=== PATIENT | female | born 1960 | race Caucasian/White ===

== ENCOUNTER 2018-02-28 07:18 | Emergency (ER) | payer MEDICARE, OTHER ==
[2018-02-28 07:33] VITALS: BP 112/66
--- NOTE | 2018-02-28 08:02 | UC ---
Hip/Pelvis Pain - HPI Summary HPI Summary: 57 yo WF h/o OP p/w sudden right hip pain radiating into right buttock x1 day, first felt when grocery shopping, denies injury, fall, overuse. Denies numbness or tingling. - History Of Current Complaint Chief Complaint: UCLowerExtremity Stated Complaint: HIP PAIN Time Seen by Provider: 02/28/18 07:42 Hx Obtained From: Patient Onset/Duration: Sudden Onset, Lasting Days, Still Present Severity Initially: Moderate Severity Currently: Severe Pain Intensity: 10 Location: Discrete At: - iN right hip joint, Radiates To: - right buttock Aggravating Factor(s): Nothing Alleviating Factor(s): Nothing Associated Signs And Symptoms: Positive: Negative - Allergies/Home Medications Allergies/Adverse Reactions: Allergies Allergy/AdvReac Type Severity Reaction Status Date / Time No Known Allergies Allergy Verified 12/07/15 15:15 PMH/Surg Hx/FS Hx/Imm Hx - Additional Past Medical History Additional PMH: Osteoporosis - Surgical History Surgical History: Yes Surgery Procedure, Year, and Place: tonsillectomy 1987,lumpectomy LEFT BREAST 2009, rods and screws to back 04/2015 - Family History Known Family History: Positive: Cardiac Disease - daughter had an [place] at 22, Diabetes Family History: FHx of breast CA (sister) - Social History Alcohol Use: Rare Substance Use Type: None Substance Use Comment - Amount & Last Used: nucynta, Smoking Status (MU): Never Smoked Tobacco Review of Systems All Other Systems Reviewed And Are Negative: Yes Constitutional: Positive: Negative Skin: Positive: Negative Eyes: Positive: Negative ENT: Positive: Negative Respiratory: Positive: Negative Cardiovascular: Positive: Negative Gastrointestinal: Positive: Negative Genitourinary: Positive: Negative Motor: Positive: Negative Neurovascular: Positive: Negative Musculoskeletal: Positive: Decreased ROM - right hip Neurological: Positive: Negative Psychological: Positive: Negative Physical Exam - Summary Physical Exam Summary: Vital Signs Reviewed: Yes Skin: Positive: Warm Head/Face: Positive: Normal Head/Face Inspection Eyes: Positive: Normal ENT: Positive: Normal ENT inspection Neck: Positive: Supple Respiratory/Lung Sounds: Positive: Clear to Auscultation Cardiovascular: Positive: Normal, RRR, S1, S2 Abdomen Description: Positive: Nontender Musculoskeletal: Positive: pain elicited with right straight leg test in hip joint, not into the lower back, NEG lumbar paraspinal muscle tenderness. antalgic gait Neurological: Positive: Normal Psychiatric: Positive: Normal, Affect/Mood Appropriate Vital Signs: Initial Vital Signs Temp 36.8 C 02/28/18 07:27 Pulse 78 02/28/18 07:27 Resp 16 02/28/18 07:27 BP 112/66 02/28/18 07:27 Pulse Ox 99 02/28/18 07:27 Hip Injury Course/Dx - Course Course Of Treatment: right hip pain- XR of right hip and lumbar XR neg for acute pathology or fracture, advised pt to f/u with PCP and ortho for MRI if pain persists - Differential Dx/Diagnosis Provider Diagnosis: Acute right hip pain Discharge - Sign-Out/Discharge Documenting (check all that apply): Patient Departure All imaging exams completed and their final reports reviewed: Yes - Discharge Plan Condition: Stable Disposition: HOME Patient Education Materials: Hip Pain (ED) Referrals: Christian Cantu MD [Primary Care Provider] - Additional Instructions: PLEASE GET OSCAL 500 FROM PHARMACY AND TAKE ONE TAB TWICE PER DAY FOR CHRONIC OSTEOPENIA (LACK OF BONE MASS) - Billing Disposition and Condition Condition: STABLE Disposition: Home
== END 2018-02-28 09:34 | disposition home or self-care (01) ==
LOC: UCEAST 07:18
DX: M25.551 Pain in right hip (principal); M79.10 Myalgia, unspecified site; M81.0 Age-related osteoporosis without current pathological fracture
CPT/HCPCS: 72110; 99212; G0463

== ENCOUNTER 2019-06-11 19:38 | Emergency (ER) | payer MEDICARE, OTHER ==
--- OUTSIDE RECORDS SUMMARY | 2019-06-11 19:45 | XMS REPORT | Continuity of Care Document ---
:1960 External Reference #:[id number] Author Name Roxanne Watson Address [address] [place] [address] Care Team Providers Name Role Phone Christian Cantu MD - Family Care Team Information Rollout Manager Medicine [facility] [place] Physical Therapy - Physical Care Team Information Rollout Manager [phone] Therapy Problems Active Problems Provider Date Dysthymic disorder Dillon Arcos M.D. Onset: 02/03/2016 Candidiasis of mouth Dillon Arcos M.D. Onset: 03/24/2015 Spinal stenosis of thoracic region Dillon Arcos M.D. Onset: 03/24/2015 Cystic disease of kidney Joseluis Campoverde M.D. Onset: 01/27/2015 Generalized anxiety disorder Joseluis Campoverde M.D. Onset: 01/27/2015 Acute maxillary sinusitis Christian Wynne M.D. Onset: 06/30/2014 Social History Type Date Description Comments Sex Unknown Tobacco Use Start: Unknown Nonsmoker ETOH Use Social Alcohol 1-2 a week Tobacco Use Start: Unknown Patient has never smoked Smoking Status Reviewed: 08/10/17 Patient has never smoked Allergies, Adverse Reactions, Alerts Active Allergies Reaction Severity Comments Date NKDA 10/27/2010 Inactive Allergies Nka 03/26/1998 Medications Active Medications SIG Qnty Indications Ordering Provider Date Guaiatussin ac 5-10ml by mouth 118ml R05 Halley James, 04/22/2019 at at bedtime as Afnp-C 100-10mg/5ML Syrup needed cough mr x 1 in 3-4 hours as needed Ibuprofen take one by 60tabs M70.841 Paulina Odonnell 01/01/2019 600mg Tablets mouth up to 3 Carlos, [employer] times per day as needed for pain Citalopram 1 by mouth every 90tabs Christian Ramey 02/03/2016 Hydrobromide day MD Pepe 40mg Tablets Calcium 600 1po every other Unknown 600mg Tablets day History Medications Ciprofloxacin HCL 2 qtts in 5ml H10.89 Rachele Markham, [facility] 01/18/2019 - 0.3% affected eye 04/22/2019 Solution three times a day x 2d then twice a day until clear Azithromycin 2 take by mouth 6tabs [place] 11/14/2018 - 250mg tablets April, [facility] 01/01/2019 Tablets today,then one tab days 2-5 until finished Medications Administered in Office Medication SIG Qnty Indications Ordering Provider Date Brief Emotional/Behav Christian Cantu MD 08/10/2017 Assessment W/ Scoring Doc Per Standard Inst Injection Immunizations CPT Code Status Date Vaccine Lot # [id number] Given 12/14/2017 Influenza Vac, Quadrivalent, Slit Virus, Im [id number] Given 08/10/2017 Tetanus And Diptheria Adult Preservative Free [id number] >7Yrs [id number] Given 12/24/2016 Influenza Vac, Quadrivalent, Slit Virus, Im [id number] Given 02/03/2016 Influenza Vac, Quadrivalent, Slit Virus, Im [id number] Given 01/04/2005 Td Immunization, For Use In Individuals 7 Years Or Older [id number] Given 01/04/2005 DO Not Use Split Influenza Virus Vaccine Vital Signs Date Vital Result Comment 04/22/2019 12:57pm BP Systolic 120 mmHg BP Diastolic 72 mmHg Heart Rate 98 /min Body Temperature 99.0 F Respiratory Rate 20 /min Weight 137.00 lb 01/18/2019 11:38am BP Systolic 120 mmHg BP Diastolic 80 mmHg Heart Rate 78 /min Body Temperature 98.2 F Respiratory Rate 18 /min Weight 127.00 lb Results Test Acquired Date Facility Test Result H/L Range Note Flu A&B (Fma) 04/22/2019 [facility] Influenza A neg (607)- - Influenza B neg Basic Metabolic Panel 12/24/2018 [facility] Sodium 138 mmol/L Normal 135-145 Potassium 4.0 mmol/L Normal 3.5-5.0 Chloride 102 mmol/L Normal 101-111 Co2 Carbon Dioxide 30 mmol/L Normal 22-32 Anion Gap 6 mmol/L Normal 2-11 Glucose 85 mg/dL Normal 70-100 Blood Urea Nitrogen 17 mg/dL Normal 6-24 Creatinine 0.65 mg/dL Normal 0.51-0.95 BUN/Creatinine Ratio 26.2 High 8-20 Calcium 9.8 mg/dL Normal 8.6-10.3 Egfr Non- 93.0 >60 Egfr 112.5 >60 1 1 Because ethnic data is not always readily available, this report includes an eGFR for both -Americans and non- Americans. The National Kidney Disease Education Program (NKDEP) does not endorse the use of the MDRD equation for patients that are not between the ages of 18 and 70, are , have extremes of body size, muscle mass, or nutritional status, or are non- or non-. According to the National Kidney Foundation, irrespective of diagnosis, the stage of the disease is based on the level of kidney function: Stage Description GFR(mL/min/1.73 m(2)) 1 Kidney damage with normal or decreased GFR 90 2 Kidney damage with mild decrease in GFR 60-89 3 Moderate decrease in GFR 30-59 4 Severe decrease in GFR 15-29 5 Kidney failure <15 (or dialysis) Procedures Date Code Description Status 07/10/2048 797856284 Bone Mineral Density Test Completed 11/13/2018 64481 Remove Impact Cerumen Irrigati Completed 10/03/2018 [id number] Mammogram Completed 09/21/2017 [id number] Mammogram Completed 08/31/2016 [id number] Mammogram Completed 08/31/2015 [id number] Mammogram Completed 07/21/2014 [id number] Mammogram Completed 04/20/2012 [id number] Mammogram Completed 12/06/2010 [id number] Colonoscopy Completed 09/14/2010 [id number] Mammogram Completed 04/29/2009 [id number] Mammogram Completed 09/10/2008 [id number] Mammogram Completed 07/05/2007 [id number] Mammogram Completed 03/16/2006 [id number] Mammogram Completed Medical Devices Description No Information Available Encounters Type Date Location Provider Dx Diagnosis Office Visit 01/18/2019 Main Office LOLA Irizarry H10.89 Other conjunctivitis 11:00a Office Visit 01/01/2019 Main Office Paulina Odonnell M70.841 Oth soft tissue 11:00a PAM Gonzalez disorders related to use/pressure, r hand M77.01 Medial epicondylitis, right elbow Office Visit 11/13/2018 6:45p Main Office Cristine J02.9 Acute pharyngitis, April, [facility] unspecified H61.23 Impacted cerumen, bilateral Assessments Date Code Description Provider 04/22/2019 J06.9 Acute upper respiratory infection, Halley James, Afnp-C unspecified 04/22/2019 R05 Cough Halley James, Afnp-C 01/18/2019 H10.89 Other conjunctivitis Rachele Shahrzad, [facility] 01/01/2019 M70.841 Other soft tissue disorders related to Paulina Gonzalez , [employer] use, overuse and pressure, right hand 01/01/2019 M77.01 Medial epicondylitis, right elbow Paulina Gonzalez, [employer] 11/13/2018 J02.9 Acute pharyngitis, unspecified Cristinemanuelito Chen, [facility] 11/13/2018 H61.23 Impacted cerumen, bilateral Cristinemanuelito Chen, [facility] Plan of Treatment 04/22/2019 - Lillie Watson-CJ06.9 Acute upper respiratory infection, [id number] CoughNew Medication:Guaiatussin ac 100-10 mg/5ML - 5-10ml by mouth at at bedtime as needed cough mr x 1 in 3-4 hours as neededFollow up: Followup:. (Follow up)AllComments:Medication Management Patient Understands medications she's taking? Yes No Are there Barriers to Adherence? Yes No Has the patient been asked about herbal supplements and therapies, and OTC meds? Yes No Care Plan1. Patient has been queried about patient's goals/preferences and functional/lifestyle goals at relevant visits. If relevant, describe: na2. Treatment goals as explained to the patient: abovesx resolution 3. Are there barriers to meeting treatment goals? Yes No If Yes, please describe:4. Self-Management goals as described to the patient: Yes No this appears to be a viral illness, and ought to respond to sx rx : rest , tylenol fluids, vapor , cough med f/u if no better over next 1-2 weeks, or if sx worsen , new fever , sob Functional Status Description No Information Available Mental Status Description No Information Available Referrals Description No Information Available
[2019-06-11 20:15] VITALS: BP 134/69
[2019-06-11 20:23] LABS: Influenza A Molecular Negative (Negative); Influenza B Molecular Negative (Negative)
[2019-06-11] MEDS ORDERED: Acetaminophen TAB* 325 MG PO ONE (20:26)
[2019-06-11] MEDS ORDERED: Cephalexin CAP* 500 MG PO ONE (20:26)
--- NOTE | 2019-06-11 20:28 | UC ---
Throat Pain/Nasal Marino HPI - HPI Summary HPI Summary: The patient is a 58-year-old female that presents here request requesting COVID 19 testing. She had the onset of fever and chills today. She states she has a sore throat. She states she has mild bilateral otalgia. She denies any chest pain. She states her back hurts. She denies any UTI symptoms. She denies any shortness of breath. - History of Current Complaint Chief Complaint: UCRespiratory Stated Complaint: SORE THROAT, CHILLS, BACKACHE Time Seen by Provider: 06/11/19 19:49 Hx Obtained From: Patient Onset/Duration: Gradual Onset, Lasting Hours Severity: Moderate Pain Intensity: 6 Pain Scale Used: 0-10 Numeric Cough: None Associated Signs & Symptoms: Positive: Fever Related History: Prior ENT Surgery, T & A - Epiglottits Risk Factors Epiglottis Risk Factors: Negative - Allergies/Home Medications Allergies/Adverse Reactions: Allergies Allergy/AdvReac Type Severity Reaction Status Date / Time No Known Allergies Allergy Verified 06/11/19 19:46 Home Medications: Home Medications Citalopram TAB* [Celexa TAB*] 20 mg PO DAILY 11/29/15 [History Confirmed ] Naproxen [Naproxen 500 mg tab] 500 mg PO BID 10 Days #20 tablet. 02/28/18 [Rx Confirmed 06/11/19] Cephalexin CAP* [Keflex CAP*] 500 mg PO BID #20 cap 06/11/19 [Rx] Dextromethorphan HBr [Tussin Long-Acting] 15 ml PO Q6HR 06/11/19 [History Confirmed 06/11/19] guaiFENesin [Mucinex] 600 mg PO Q6HR 06/11/19 [History Confirmed 06/11/19] PMH/Surg Hx/FS Hx/Imm Hx Previously Healthy: Yes Cancer History: Breast Cancer - Surgical History Surgical History: Yes Surgery Procedure, Year, and Place: tonsillectomy 1987. lumpectomy LEFT BREAST 2009. rods and screws to back 04/2015 - Family History Known Family History: Positive: Cardiac Disease - daughter had an [place] at 22, Diabetes Family History: FHx of breast CA (sister) - Social History Alcohol Use: Weekly Alcohol Amount: 2 glasses Substance Use Type: None Substance Use Comment - Amount & Last Used: nucynta, Smoking Status (MU): Never Smoked Tobacco Review of Systems All Other Systems Reviewed And Are Negative: Yes Constitutional: Positive: Fever, Chills, Fatigue Skin: Positive: Negative Eyes: Positive: Negative ENT: Positive: Sore Throat Respiratory: Positive: Negative Cardiovascular: Positive: Negative Gastrointestinal: Positive: Negative Genitourinary: Positive: Negative Motor: Positive: Negative Neurovascular: Positive: Negative Musculoskeletal: Positive: Myalgia Neurological/Mental Status: Positive: Headache Psychological: Positive: Negative Physical Exam Triage Information Reviewed: Yes Appearance: Well-Appearing, No Pain Distress, Well-Nourished Vital Signs: Initial Vital Signs Temp 102.7 F 06/11/19 20:14 Pulse 112 06/11/19 20:14 Resp 12 06/11/19 20:14 BP 134/69 06/11/19 20:14 Pulse Ox 97 06/11/19 20:14 Vital Signs Reviewed: Yes Eyes: Positive: Conjunctiva Clear ENT: Positive: Hearing grossly normal, Pharyngeal erythema, Uvula midline. Negative: Nasal congestion, Nasal drainage, Tonsillar swelling, Tonsillar exudate, Trismus, Muffled voice, Hoarse voice, Sinus tenderness Dental Exam: Normal Neck: Positive: Tenderness @, Enlarged Nodes @ - ant cervical Respiratory: Positive: Lungs clear, Normal breath sounds, No respiratory distress, No accessory muscle use Cardiovascular: Positive: RRR, No Murmur Abdomen Description: Positive: Nontender, No Organomegaly. Negative: CVA Tenderness (R), CVA Tenderness (L) Bowel Sounds: Positive: Present Musculoskeletal: Positive: No Edema Neurological: Positive: Alert Psychological Exam: Normal Skin Exam: Normal Diagnostics - Laboratory Lab Results: strep + UA +++RBCs otherwise (-) inluenza (-) Throat Pain/Nasal Course/Dx - Course Course Of Treatment: patient refuses to take amoxicillin - Differential Dx/Diagnosis Provider Diagnosis: Strep throat, Microscopic hematuria, Educated about COVID-19 virus infection, Elevated BP without diagnosis of hypertension Discharge ED - Sign-Out/Discharge Documenting (check all that apply): Patient Departure All imaging exams completed and their final reports reviewed: No Studies - Discharge Plan Condition: Stable Disposition: HOME Prescriptions: Cephalexin CAP* [Keflex CAP*] 500 mg PO BID #20 cap Patient Education Materials: Strep Throat (ED), Hematuria (ED) Forms: COVID-19 Tested & Isolation Referrals: Christian Cantu MD [Primary Care Provider] - 2 Weeks (for urine recheck) Additional Instructions: Your strep test was (+) Your urine showed microscopic evidence of blood in it. You need to have your urine rechecked in 2 weeks to make sure it has cleared up Your flu test was (-) Your COVID19 test should be down in a couple of days - Billing Disposition and Condition Condition: STABLE Disposition: Home
== END 2019-06-11 20:35 | disposition home or self-care (01) ==
LOC: UCEAST 19:38
DX: J02.0 Streptococcal pharyngitis (principal); R31.29 Other microscopic hematuria; R03.0 Elevated blood-pressure reading, without diagnosis of hypertension; H92.03 Otalgia, bilateral; Z20.828 Contact with and (suspected) exposure to other viral communicable diseases
CPT/HCPCS: 81003; 87635; 87651; 99212; A9270-GY; G0463; G2023